=== PATIENT | female | born 1985 | race Caucasian/White ===

== ENCOUNTER 2020-06-24 08:00 | Outpatient (CLI) | payer OTHER ==
--- NOTE | 2020-06-25 08:27 | XRAY Report ---
PROCEDURE: Chest 2 View X-Ray INDICATIONS: Productive cough TECHNIQUE: 2 view(s) of the chest. COMPARISON: None. FINDINGS: Surgical changes and devices: None. Lungs and pleura: No pleural effusions or pneumothorax. Lungs are clear. Mediastinum: Mediastinal contours are normal. Heart size is normal. Bones and chest wall: Mild thoracic dextroscoliosis. No suspicious bony abnormalities. Soft tissues appear unremarkable. IMPRESSION: No acute process demonstrated. Reviewed by: Michael Gerber MD on 06/25/2020 8:26 AM [facility] Approved by: Michael Gerber MD on 06/25/2020 8:26 AM [facility] Station ID: [id number]
--- NOTE | 2020-06-25 08:29 | XRAY Report ---
PROCEDURE: Cervical Spine Complete INDICATIONS: CERVICAL RADICULOPATHY TECHNIQUE: 5 view(s) of the cervical spine were acquired. COMPARISON: None. FINDINGS: Bones: Normal cervical spine vertebral body height and alignment. Intervertebral disc spaces are leti ruent and maintained. No significant degenerative changes identified. Oblique views demonstrate mild osseous neural foraminal narrowing on the right from C4-C5 through C6-C7. No suspicious lytic or abimbola tic osseous lesion. Soft tissues: No prevertebral soft tissue swelling. IMPRESSION: Mild osseous neural foraminal narrowing on the right from C4-C5 through C6-C7. An MRI of the cervical spine may be more helpful in evaluating for potential focal nerve root impingement. Reviewed by: Michael Gerber MD on 06/25/2020 8:28 AM PST Approved by: Michael Gerber MD on 06/25/2020 8:28 AM PST Station ID: [id number]
== END 2020-06-24 23:59 ==
LOC: DI.S 08:00
PROVIDERS: ATTEND Physician Assistant Medical
DX: R05 Cough (principal); M47.812 Spondylosis without myelopathy or radiculopathy, cervical region

== ENCOUNTER 2020-08-25 08:00 | Outpatient (CLI) | payer OTHER ==
[2020-08-25 20:09] LABS: BASOPHILS # (AUTO) 0.1 10^3/uL (0.0-0.1); BASOPHILS % (AUTO) 0.9 %; EOSINOPHILS # (AUTO) 0.1 10^3/uL (0.0-0.7); EOSINOPHILS % (AUTO) 0.8 %; HGB - HEMOGLOBIN 13.9 g/dL (12.0-16.0); LYMPHOCYTES # (AUTO) 2.2 10^3/uL (1.5-3.5); LYMPHOCYTES % (AUTO) 25.1 %; MEAN CORPUSCULAR HEMOGLOBIN 31.9 pg (27.0-31.0); MEAN CORPUSCULAR HGB CONC 33.4 g/dL (32.0-36.0); MEAN CORPUSCULAR VOLUME 95.4 fL (81.0-99.0); MEAN PLATELET VOLUME 10.9 fL (7.9-10.8); MONOCYTES # (AUTO) 0.6 10^3/uL (0.0-1.0); MONOCYTES % (AUTO) 6.5 %; NEUTROPHILS # (AUTO) 5.8 10^3/uL (1.5-6.6); NEUTROPHILS % (AUTO) 66.6 %; PLT - PLATELET COUNT 202 10^3/uL (130-450); RED BLOOD COUNT 4.36 10^6/uL (4.20-5.40); RED CELL DISTRIBUTION WIDTH 13.2 % (12.0-15.0); WHITE BLOOD COUNT 8.7 x10^3/uL (4.8-10.8)
[2020-08-25 20:32] LABS: ALBUMIN 4.6 g/dL (3.2-5.5); ALBUMIN/GLOBULIN RATIO 1.5 (1.0-2.2); ALKALINE PHOSPHATASE 33 IU/L (42-121); ALT ALANINE AMINOTRANSFERASE < 10 IU/L (10-60); AST ASPARTATE AMINOTRANSFERASE 16 IU/L (10-42); BILIRUBIN,TOTAL 0.4 mg/dL (0.2-1.0); BUN - BLOOD UREA NITROGEN 9 mg/dL (6-20); CALCIUM 9.5 mg/dL (8.5-10.3); CARBON DIOXIDE - CO2 27 mmol/L (21-32); CHLORIDE 101 mmol/L (101-111); CREATININE 0.8 mg/dL (0.4-1.0); GLUCOSE 100 mg/dL (70-100); SODIUM 142 mmol/L (135-145); TOTAL PROTEIN 7.6 g/dL (6.7-8.2)
== END 2020-08-25 08:01 | disposition home or self-care (01) ==
LOC: LAB.N 08:00
PROVIDERS: ATTEND Family Medicine
DX: I95.1 Orthostatic hypotension (principal)
CPT/HCPCS: 36415; 80053; 84443; 85025

== ENCOUNTER 2021-10-20 07:00 | Outpatient (CLI) | payer OTHER ==
[2021-10-20 18:23] LABS: BASOPHILS # (AUTO) 0.1 10^3/uL (0.0-0.1); BASOPHILS % (AUTO) 0.7 %; EOSINOPHILS # (AUTO) 0.1 10^3/uL (0.0-0.7); EOSINOPHILS % (AUTO) 0.6 %; HCT - HEMATOCRIT 41.1 % (37.0-47.0); HGB - HEMOGLOBIN 13.7 g/dL (12.0-16.0); LYMPHOCYTES # (AUTO) 2.3 10^3/uL (1.5-3.5); LYMPHOCYTES % (AUTO) 27.4 %; MEAN CORPUSCULAR HEMOGLOBIN 31.1 pg (27.0-31.0); MEAN CORPUSCULAR HGB CONC 33.3 g/dL (32.0-36.0); MEAN CORPUSCULAR VOLUME 93.2 fL (81.0-99.0); MEAN PLATELET VOLUME 11.3 fL (7.9-10.8); MONOCYTES # (AUTO) 0.6 10^3/uL (0.0-1.0); MONOCYTES % (AUTO) 7.8 %; NEUTROPHILS # (AUTO) 5.2 10^3/uL (1.5-6.6); NEUTROPHILS % (AUTO) 63.3 %; PLT - PLATELET COUNT 196 10^3/uL (130-450); RED BLOOD COUNT 4.41 10^6/uL (4.20-5.40); RED CELL DISTRIBUTION WIDTH 14.6 % (12.0-15.0); WHITE BLOOD COUNT 8.3 x10^3/uL (4.8-10.8)
[2021-10-20 18:31] LABS: ALBUMIN 4.6 g/dL (3.2-5.5); ALBUMIN/GLOBULIN RATIO 1.4 (1.0-2.2); BILIRUBIN,TOTAL 0.8 mg/dL (0.2-1.0); CALCIUM 9.3 mg/dL (8.5-10.3); CREATININE 0.9 mg/dL (0.4-1.0); POTASSIUM 3.5 mmol/L (3.5-5.0); TOTAL PROTEIN 7.8 g/dL (6.7-8.2)
[2021-10-20 18:49] LABS: THYROID STIMULATING HORMONE 0.94 uIU/mL (0.34-5.60)
== END 2021-10-20 23:59 | disposition home or self-care (01) ==
LOC: LAB.N 07:00
PROVIDERS: ATTEND Family Medicine
DX: I49.8 Other specified cardiac arrhythmias (principal)
CPT/HCPCS: 36415; 80053; 84443; 84484; 85025

== ENCOUNTER 2022-10-23 17:03 | Emergency (ER) | payer OTHER ==
[2022-10-23 17:40] LABS: BASOPHILS # (AUTO) 0.1 10^3/uL (0.0-0.1); BASOPHILS % (AUTO) 0.8 %; EOSINOPHILS % (AUTO) 0.7 %; HCT - HEMATOCRIT 39.6 % (37.0-47.0); HGB - HEMOGLOBIN 12.9 g/dL (12.0-16.0); LYMPHOCYTES # (AUTO) 1.7 10^3/uL (1.5-3.5); LYMPHOCYTES % (AUTO) 27.9 %; MEAN CORPUSCULAR HEMOGLOBIN 31.1 pg (27.0-31.0); MEAN CORPUSCULAR HGB CONC 32.6 g/dL (32.0-36.0); MEAN CORPUSCULAR VOLUME 95.4 fL (81.0-99.0); MEAN PLATELET VOLUME 9.6 fL (7.9-10.8); MONOCYTES # (AUTO) 0.8 10^3/uL (0.0-1.0); MONOCYTES % (AUTO) 13.9 %; NEUTROPHILS # (AUTO) 3.4 10^3/uL (1.5-6.6); NEUTROPHILS % (AUTO) 56.5 %; PLT - PLATELET COUNT 182 10^3/uL (130-450); RED BLOOD COUNT 4.15 10^6/uL (4.20-5.40); RED CELL DISTRIBUTION WIDTH 13.3 % (12.0-15.0); WHITE BLOOD COUNT 6.1 x10^3/uL (4.8-10.8)
--- NOTE | 2022-10-23 17:51 | XRAY Report ---
PROCEDURE: Chest 1 View X-Ray INDICATIONS: Chest Pain TECHNIQUE: One view of the chest was acquired. COMPARISON: None. FINDINGS: Surgical changes and devices: None. Lungs and pleura: No pleural effusions or pneumothorax. Lungs are clear. Mediastinum: Mediastinal contours appear normal. Heart size is normal. Bones and chest wall: No suspicious bony lesions. Overlying soft tissues appear unremarkable. IMPRESSION: No acute cardiopulmonary pathology. Reviewed by: Travon Peterson MD on 10/23/2022 5:50 PM PDT Approved by: Travon Peterson MD on 10/23/2022 5:50 PM PDT Station ID: [id number]
[2022-10-23 17:54] LABS: ALBUMIN 4.1 g/dL (3.2-5.5); ALBUMIN/GLOBULIN RATIO 1.3 (1.0-2.2); BILIRUBIN,TOTAL 0.4 mg/dL (0.2-1.0); CALCIUM 8.9 mg/dL (8.5-10.3); CREATININE 0.7 mg/dL (0.4-1.0); POTASSIUM 3.8 mmol/L (3.5-5.0); TOTAL PROTEIN 7.3 g/dL (6.7-8.2)
--- NOTE | 2022-10-23 17:57 | ED Physician Documentation ---
PD HPI CHEST PAIN - Stated complaint Stated Complaint: HIGH HR - Chief complaint Chief Complaint: Cardiac - History obtained from History obtained from: Patient - Additional information Additional information: 37-year-old woman with POTS. Otherwise healthy. Currently takes no meds. She had 2 episodes of palpitations and chest discomfort today. The first was at 1215. It was a chest heaviness associated with rapid heart rate. Her watch reported it was up to 160. It lasted about 2 minutes. This happened while standing but not exertional. About 315 she had a much shorter episode, only about 10 seconds. She now feels back to normal. No shortness of breath. No persistent chest pain. No pedal edema or calf pain. No increase in her baseline Caffeine use today. PD PAST MEDICAL HISTORY - Allergies Allergies/Adverse Reactions: Allergies Allergy/AdvReac Type Severity Reaction Status Date / Time No Known Drug Allergies Allergy Verified 10/23/22 17:17 PD ED PE NORMAL - Vitals Vital signs reviewed: Yes - General General: Alert and oriented X 3, No acute distress - HEENT HEENT: PERRL, EOMI - Neck Neck: Supple, no meningeal sign, No bony TTP, Thyroid normal - Cardiac Cardiac: RRR, No murmur - Respiratory Respiratory: No respiratory distress, Clear bilaterally - Abdomen Abdomen: Non tender - Extremities Extremities: No edema, No calf tenderness / cord - Neuro Neuro: Alert and oriented X 3, Normal speech Results - Vitals Vitals: Vital Signs - 24 hr 10/23/22 10/23/22 17:14 17:17 Temperature 36.5 C Heart Rate 78 74 Respiratory 14 14 Rate Blood Pressure 122/73 116/85 H O2 Saturation 100 100 Oxygen O2 Source Room air - EKG (time done) 1710 EKG releavant findings:: EKG personally interpreted by author of this note. Relevant findings are: Rate: Rate (enter#) (81) Rhythm: NSR [place]: Normal Intervals: Normal OK QRS: Normal Ischemia: Normal ST segments - Labs Labs: Laboratory Tests 10/23/22 10/23/22 10/23/22 17:35 17:35 17:35 WBC 6.1 RBC 4.15 L Hgb 12.9 Hct 39.6 MCV 95.4 MCH 31.1 H MCHC 32.6 RDW 13.3 Plt Count 182 MPV 9.6 Neut # (Auto) 3.4 Lymph # (Auto) 1.7 [place] # (Auto) 0.8 Eos # (Auto) 0.0 Baso # (Auto) 0.1 Absolute Nucleated RBC 0.00 Nucleated RBC % 0.0 Sodium 138 Potassium 3.8 Chloride 105 Carbon Dioxide 25 Anion Gap 8.0 BUN 7 Creatinine 0.7 Estimated GFR (MDRD) 95 Glucose 107 H Calcium 8.9 Total Bilirubin 0.4 AST 22 ALT 11 Alkaline Phosphatase 35 L Troponin I High Sens < 2.3 L Total Protein 7.3 Albumin 4.1 Globulin 3.2 Albumin/Globulin Ratio 1.3 Lipase 30 TSH Urine HCG, Qual 10/23/22 10/23/22 17:35 18:06 WBC RBC Hgb Hct MCV MCH MCHC RDW Plt Count MPV Neut # (Auto) Lymph # (Auto) [place] # (Auto) Eos # (Auto) Baso # (Auto) Absolute Nucleated RBC Nucleated RBC % Sodium Potassium Chloride Carbon Dioxide Anion Gap BUN Creatinine Estimated GFR (MDRD) Glucose Calcium Total Bilirubin AST ALT Alkaline Phosphatase Troponin I High Sens Total Protein Albumin Globulin Albumin/Globulin Ratio Lipase TSH 1.59 Urine HCG, Qual NEGATIVE - Rads (name of study) 1v cxr - NAD Relevant Findings:: Final report received, EMP independent interpretation of test PD Medical Decision Making - ED course ED course: 37-year-old woman with presents with an exacerbation of intermittent palpitations. She is asymptomatic in the department here. EKG without ectopy and on the monitor here she had no ectopy. CBC normal without sign of anemia. CMP normal. Troponin negative. TSH normal. Urine test negative. Single view chest x-ray was unremarkable. She may have something like an intermittent SVT. Discussed need for follow-up and consideration for Holter or Zio patch. Departure - Departure Disposition: 01 Home, Self Care Clinical Impression: Palpitations Condition: Good Record reviewed to determine appropriate education?: Yes Instructions: ED Palpitations Comments: We were not able to identify any abnormal heart rhythms while in the emergency department. That said your EKG and labs were unremarkable/normal. Consider following up with Dr. Salgado for a heart monitor such as a Zio patch. Return for new or worsening symptoms.
[2022-10-23 18:11] VITALS: BP 116/85
[2022-10-23 18:21] LABS: HCG UR QUAL NEGATIVE
== END 2022-10-23 19:10 | disposition home or self-care (01) ==
LOC: ED 17:03
DX: R00.2 Palpitations (principal)
CPT/HCPCS: 36415; 80053; 81025; 83690; 84443; 84484; 85025; 93005; 99284

== ENCOUNTER 2022-11-02 08:46 | Outpatient (CLI) | payer OTHER ==
[2022-11-02 12:05] LABS: BASOPHILS # (AUTO) 0.1 10^3/uL (0.0-0.1); EOSINOPHILS # (AUTO) 0.2 10^3/uL (0.0-0.7); EOSINOPHILS % (AUTO) 1.9 %; HCT - HEMATOCRIT 42.9 % (37.0-47.0); HGB - HEMOGLOBIN 14.3 g/dL (12.0-16.0); LYMPHOCYTES # (AUTO) 2.2 10^3/uL (1.5-3.5); LYMPHOCYTES % (AUTO) 28.5 %; MEAN CORPUSCULAR HEMOGLOBIN 31.6 pg (27.0-31.0); MEAN CORPUSCULAR HGB CONC 33.3 g/dL (32.0-36.0); MEAN CORPUSCULAR VOLUME 94.9 fL (81.0-99.0); MEAN PLATELET VOLUME 10.6 fL (7.9-10.8); MONOCYTES # (AUTO) 0.6 10^3/uL (0.0-1.0); MONOCYTES % (AUTO) 7.1 %; NEUTROPHILS # (AUTO) 4.8 10^3/uL (1.5-6.6); NEUTROPHILS % (AUTO) 61.2 %; PLT - PLATELET COUNT 255 10^3/uL (130-450); RED BLOOD COUNT 4.52 10^6/uL (4.20-5.40); RED CELL DISTRIBUTION WIDTH 13.7 % (12.0-15.0); WHITE BLOOD COUNT 7.8 x10^3/uL (4.8-10.8)
[2022-11-02 12:13] LABS: ALBUMIN 4.5 g/dL (3.2-5.5); ALBUMIN/GLOBULIN RATIO 1.3 (1.0-2.2); ALKALINE PHOSPHATASE 41 IU/L (42-121); ALT ALANINE AMINOTRANSFERASE 12 IU/L (10-60); AST ASPARTATE AMINOTRANSFERASE 24 IU/L (10-42); BUN - BLOOD UREA NITROGEN 14 mg/dL (6-20); CALCIUM 9.4 mg/dL (8.5-10.3); CARBON DIOXIDE - CO2 29 mmol/L (21-32); CHLORIDE 102 mmol/L (101-111); CHOL/HDL RATIO 2.2 (<4.4); CHOLESTEROL 178 mg/dL; CREATININE 0.9 mg/dL (0.4-1.0); CRP - C-REACTIVE PROTEIN < 1.0 mg/dL (0-1.0); GFR - MDRD 71 (>89); GLUCOSE 89 mg/dL (70-100); HDL CHOLESTEROL 80 mg/dL; LDL CHOLESTEROL,CALCULATED 81 mg/dL; POTASSIUM 4.4 mmol/L (3.5-5.0); SODIUM 139 mmol/L (135-145); TOTAL PROTEIN 8.1 g/dL (6.7-8.2); TRIGLYCERIDES 86 mg/dL; VLDL CHOLESTEROL 17 mg/dL
[2022-11-02 12:20] LABS: THYROID STIMULATING HORMONE 1.49 uIU/mL (0.34-5.60)
[2022-11-04 18:07] LABS: ANTINUCLEAR ANTIBODIES IFA Negative (.)
== END 2022-11-02 08:47 | disposition home or self-care (01) ==
LOC: LAB.N 08:46
PROVIDERS: ATTEND Physician Assistant
DX: M25.50 Pain in unspecified joint (principal); R53.83 Other fatigue; Z13.9 Encounter for screening, unspecified; Z13.220 Encounter for screening for lipoid disorders; Z13.29 Encounter for screening for other suspected endocrine disorder
CPT/HCPCS: 36415; 80053; 80061; 83721; 84443; 85025; 85651; 86038; 86140

== ENCOUNTER 2022-12-14 10:42 | Emergency (ER) | payer OTHER ==
[2022-12-14 10:54] VITALS: BP 135/74
--- NOTE | 2022-12-14 12:41 | ED Physician Documentation ---
History of Present Illness - Stated complaint Stated Complaint: RT WRIST PX/SWELLING - Chief complaint Chief Complaint: Ext Problem - Additonal information Additional information: 37-year-old female presents to the emergency department for evaluation of acute right wrist pain. Reports she was driving in the car this morning she felt a sudden pain in her wrist and when she looked at the bottom of it she noticed a faint blue dot or bruise that got progressively longer and more painful. Patient reports she went to her primary care office as well as to urgent cares and was told to come to the ER. She is not on any hormones. No history of similar. Does not take NSAID medication often. She did take Tylenol without resolution of pain. Review of Systems Musculoskeletal: reports: Joint pain PD PAST MEDICAL HISTORY - Allergies Allergies/Adverse Reactions: Allergies Allergy/AdvReac Type Severity Reaction Status Date / Time No Known Drug Allergies Allergy Verified 12/14/22 10:54 PD ED PE EXPANDED - Extremities Extremities: Right wrist (Large swollen vein on the ventral portion of the right wrist in the area of tenderness. 2+ radial and ulnar pulse. Distally neurovascularly intact. Flexion extension is painful though preserved) Results - Vitals Vitals: Vital Signs - 24 hr 12/14/22 10:51 Temperature 36.4 C L Heart Rate 71 Respiratory 20 Rate Blood Pressure 135/74 H O2 Saturation 100 Oxygen O2 Source Room air - Rads (name of study) wrist xr Relevant Findings:: EMP independent interpretation of test (No acute findings) PD Medical Decision Making - ED course Complexity details: d/w patient ED course: 37-year-old female presents emergency department with what appears to be a superficial thrombophlebitis on the volar aspect of her right wrist. She states that she has never had pain this bad Or any history of similar. She does not take hormones. No history of trauma to this wrist. Clinically I discussed with her that a superficial thrombophlebitis is usually self resolving with warm compresses or NSAID use. She is very anxious about the appearance of this wrist. Ultimately I did offer her ultrasound imaging though she declined it because she said "well if it just shows what you think it to be and why would I do the ultrasound." As such I am discharging the patient with recommendation to do warm compress. Consider alternating ibuprofen and Tylenol. If she has markedly worsening symptoms she will return to the ER for repeat evaluation. Departure - Departure Disposition: 01 Home, Self Care Clinical Impression: Thrombophlebitis Condition: Stable Record reviewed to determine appropriate education?: Yes Instructions: ED Phlebitis Superficial Comments: Mahsa he came to the emergency department because you developed acute pain in your right wrist and found that you had a swollen engorged blood vessel. This appears to be what is called a superficial phlebitis. You do not have a history that suggest that this would be anything deeper or more significant such as a deep vein thrombus. You were offered an ultrasound imaging of the arm but ultimately declined. If you feel that your symptoms are worsening, please return to the ER and we can at that time do the ultrasound. I do recommend placing a warm compress over this area 2-3 times a day for 10 m inutes. You can alternate taking ibuprofen and Tylenol. In most cases superficial phlebitis such as this begins to resolve after a few days. If you find that your symptoms are markedly worsening do not hesitate to return to the ER for repeat evaluation
--- NOTE | 2022-12-14 13:24 | XRAY Report ---
PROCEDURE: Wrist 3 View RT INDICATIONS: pain and swelling; no trauma TECHNIQUE: 3 views of the wrist were acquired. COMPARISON: None. FINDINGS: Bones: No fractures or dislocations. Possible deformity at the fifth metacarpal head which could be the sequelae of prior fracture. No suspicious bony lesions. Soft tissues: No suspicious soft tissue calcifications or masses. IMPRESSION: No fracture or dislocation. No suspicious calcifications. Reviewed by: Aaron Wood MD on 12/14/2022 1:23 PM PDT Approved by: Aaron Wood MD on 12/14/2022 1:23 PM PDT Station ID: [id number]
== END 2022-12-14 12:56 | disposition home or self-care (01) ==
LOC: ED 10:42
DX: I80.8 Phlebitis and thrombophlebitis of other sites (principal)
CPT/HCPCS: 99283

== ENCOUNTER 2024-01-31 13:28 | Outpatient (CLI) | payer OTHER ==
--- NOTE | 2024-01-31 16:09 | XRAY Report ---
PROCEDURE: Pelvis 3+V INDICATIONS: ACUTE BACK PAIN TECHNIQUE: 5 view(s) of the pelvis acquired. COMPARISON: None. FINDINGS: Bones: No fractures or dislocations. No suspicious bony lesions. Soft tissues: Visualized bowel gas pattern is normal. No suspicious soft tissue calcifications. IMPRESSION: Unremarkable radiographic examination of pelvis. Reviewed by: Travon Peterson MD on 01/31/2024 4:08 PM PDT Approved by: Travon Peterson MD on 01/31/2024 4:08 PM PDT Station ID: [id number]
--- NOTE | 2024-01-31 16:10 | XRAY Report ---
PROCEDURE: Lumbar Spine 2-3V INDICATIONS: ACUTE BACK PAIN TECHNIQUE: 3 views of the lumbar spine were acquired. COMPARISON: None. FINDINGS: Surgical change: None. Bones: 5 [id number] vertebrae are present. There is normal bony alignment. No vertebral body co mpression fractures. No suspicious bony lesions. Soft tissues: Overlying bowel gas pattern is normal. No suspicious soft tissue calcifications. IMPRESSION: No acute compression fracture or spondylolisthesis. No gross paraspinous soft tissue abnormalities. Reviewed by: Travon Peterson MD on 01/31/2024 4:08 PM PDT Approved by: Travon Peterson MD on 01/31/2024 4:08 PM PDT Station ID: [id number]
== END 2024-01-31 13:29 | disposition home or self-care (01) ==
LOC: DI 13:28
PROVIDERS: ATTEND Emergency Medicine
DX: M54.89 Other dorsalgia (principal)